=== PATIENT | male | born 1980 | race African-American/Black ===

== ENCOUNTER 2016-12-15 20:43 | Emergency (ER) | payer MEDICAID ==
[~2016-12-15] VITALS: Ht 175.3 cm; Wt 81.6 kg
[~2016-12-15 20:43] MED LIST: NKM
[2016-12-15 21:13] VITALS: BP 139/96
--- NOTE | 2016-12-15 21:44 | Emergency Room Report ---
History of Present Illness General Chief Complaint: Alcohol Intoxication Source: Patient Present Illness HPI 36-year-old male with unknown pmhx p/w alcohol intoxication. Patient admits to drinking alcohol, cannot quantify amount. Currently denying any complaints. Denies history of trauma. Patient is ANO x3 Allergies: Coded Allergies: PENICILLINS (Verified Allergy, Unknown, 12/15/16) Patient History Past Medical History: see triage record Past Surgical History: none Pertinent Family History: none Social History: Reports: smoking, alcohol use Reviewed Nursing Documentation: PMH: Agreed, PSxH: Agreed Review of Systems All Other Systems: negative except mentioned in HPI Physical Exam Vital Signs Date Time Temp Pulse Resp B/P (MAP) Pulse Ox O2 Delivery O2 Flow Rate FiO2 12/15/16 20:39 98.1 74 16 139/96 98 Room Air Sp02 EP Interpretation: reviewed, normal General Appearance: normal inspection, alert, GCS 15, non-toxic, other - Intoxicated however ANO x3 and cooperative Head: normocephalic, atraumatic Eyes: bilateral eye normal inspection, bilateral eye PERRL, bilateral eye EOMI ENT: normal ENT inspection, normal pharynx, normal voice, moist mucus membranes Neck: normal inspection, full range of motion, supple Respiratory: normal inspection, lungs clear, normal breath sounds, no respiratory distress, no retraction, no wheezing, speaking full sentences, chest symmetrical Cardiovascular #1: normal inspection, regular rate, rhythm, no edema, normal capillary refill Cardiovascular #2: 2+ radial (R), 2+ radial (L) Gastrointestinal: normal inspection, non tender, soft, non-distended, no guarding Genitourinary: no CVA tenderness Musculoskeletal: normal inspection, back normal, normal range of motion, non- tender Neurologic: normal inspection, alert, oriented x3, responsive, motor strength/ tone normal, sensory intact, normal gait, speech normal Psychiatric: normal inspection, judgement/insight normal, memory normal Skin: normal inspection, normal color, no rash, warm/dry, well hydrated, normal turgor Medical Decision Making Diagnostic Impression: Primary Impression: Acute alcoholic intoxication ER Course 36-year-old male with alcohol intoxication DDX: Likely alcohol intoxication No signs of trauma Plan: pending sobriety ER course: Patient has remained stable during ED stay. Now clinically sober, ambulatory. Disposition: Patient is to be discharged to home. Patient is instructed to follow up with their primary care doctor within 5 days. Please note that this Emergency Department Report was dictated using [employer] technology software, occasionally this can lead to erroneous entry secondary to interpretation by the dictation equipment Last Vital Signs Date Time Temp Pulse Resp B/P (MAP) Pulse Ox O2 Delivery O2 Flow Rate FiO2 12/15/16 20:39 98.1 74 16 139/96 98 Room Air Disposition: HOME, SELF-CARE Condition: Improved Sarina Charles M.D. Dec 15, 2016 21:44
[2016-12-16 05:10] VITALS: BP 122/78
== END 2016-12-16 05:10 | disposition home or self-care (01) ==
LOC: EDBD 20:43 → EMR 21:30
DX: F10.129 Alcohol abuse with intoxication, unspecified (principal); Z88.0 Allergy status to penicillin
CPT/HCPCS: 99284